=== PATIENT | female | born 1945 | race Caucasian/White ===

== ENCOUNTER 2019-04-09 02:43 | Inpatient (IN) ==
[2019-04-09] MEDS ORDERED: ONDANSETRON 4 MG/2 ML VIAL IV STA (02:49)
[2019-04-09] MEDS ORDERED: PANTOPRAZOLE INJ 80 MG in SODIUM CHLORIDE 0.9% 100 ML IV STA (02:49)
[2019-04-09] MEDS ORDERED: SODIUM CHLORIDE 0.9% 1,000 ML IV STA (02:49)
[2019-04-09 03:58] LABS: Albumin 3.7 G/DL (3.4-5.0); Basophils # 0.1 10*3/uL (0.0-0.2); Basophils % 0.6 % (0.0-0.8); Bilirubin,Total 0.6 MG/DL (0.2-1.0); Calcium 8.6 MG/DL (8.5-10.1); Eosinophils # 0.2 10*3/uL (0.0-0.87); Eosinophils % 1.9 % (0.00-10.9); Hematocrit 38.9 VOL% (35.7-47.0); Hemoglobin 12.3 GM/DL (12.0-16.0); Immature Granulocytes % 0.3 %; Immature Granulocytes Absolute 0.04 #; Lymphocytes # 1.6 10*3/uL (1.4-4.0); Lymphocytes % 13.5 % (21.3-54.2); Mean Corpuscular HGB Conc 31.6 GM/DL (32-36); Mean Corpuscular Volume 94.4 FL (87-102); Mean Platelet Volume 12.3 FL (9.6-12.0); Monocytes % 8.6 % (1.7-12.7); Neutrophils % 75.1 % (38.7-73.9); Osmolality,Calculated 304.3 MOS/KG (273-304); Platelet Count 204 T/CUMM (130-400); Red Blood Count 4.12 MC/CUMM (3.8-5.5); Red Cell Distribution Width 12.7 % (9.3-17.3); Total Protein 6.6 G/DL (6.4-8.3)
[2019-04-09 04:06] LABS: INR 1.1; PT Patient Result 11.4 SECS (9.6-12.2)
[2019-04-09] MEDS ORDERED: PANTOPRAZOLE INJ 200 MG in SODIUM CHLORIDE 0.9% 250 ML IV SCH (05:00)
[2019-04-09] MEDS ORDERED: ALBUTEROL 2.5 MG/3 ML NEB RESP TX PRN (06:39)
[2019-04-09] MEDS ORDERED: ACETAMINOPHEN 325 MG TABLET PO PRN (06:39)
[2019-04-09] MEDS ORDERED: ONDANSETRON 4 MG/2 ML VIAL IV PRN (06:39)
[2019-04-09] MEDS ORDERED: ALPRAZolam 0.5 MG TABLET PO PRN (06:39)
[2019-04-09] MEDS ORDERED: LEVOTHYROXINE 88 MCG TABLET PO SCH (07:00)
[2019-04-09] MEDS: SODIUM CHLORIDE 0.45% 1,000 ML IV SCH ×2 (07:21→16:11)
[2019-04-09 07:42] LABS: Hematocrit 35.9 VOL% (35.7-47.0); Hemoglobin 11.5 GM/DL (12.0-16.0)
[2019-04-09] MEDS: METOPROLOL TARTRATE 25 MG TABLET PO SCH ×2 (08:30→21:36)
[2019-04-09] MEDS: LISINOPRIL 2.5 MG TABLET PO SCH (08:30)
[2019-04-09] MEDS: ROSUVASTATIN 10 MG TABLET PO SCH (08:31)
[2019-04-09] MEDS: CETIRIZINE 10 MG TABLET PO SCH (08:31)
[2019-04-09] MEDS: PREGABALIN 75 MG CAPSULE PO SCH ×2 (08:31→21:36)
[2019-04-09] MEDS: LEVOTHYROXINE 100 MCG TABLET PO SCH (08:31)
[2019-04-09 13:32] LABS: Hematocrit 32.7 VOL% (35.7-47.0); Hemoglobin 10.5 GM/DL (12.0-16.0)
[2019-04-09 18:36] LABS: Hematocrit 31.3 VOL% (35.7-47.0)
[2019-04-10 00:52] LABS: Basophils % 0.5 % (0.0-0.8); Eosinophils # 0.3 10*3/uL (0.0-0.87); Eosinophils % 4.5 % (0.00-10.9); Hematocrit 30.1 VOL% (35.7-47.0); Hemoglobin 9.5 GM/DL (12.0-16.0); Immature Granulocytes % 0.2 %; Immature Granulocytes Absolute 0.01 #; Lymphocytes # 1.7 10*3/uL (1.4-4.0); Lymphocytes % 29.8 % (21.3-54.2); Mean Corpuscular HGB Conc 31.6 GM/DL (32-36); Mean Corpuscular Volume 93.5 FL (87-102); Mean Platelet Volume 11.5 FL (9.6-12.0); Monocytes % 10.8 % (1.7-12.7); Neutrophils % 54.2 % (38.7-73.9); Platelet Count 162 T/CUMM (130-400); Red Blood Count 3.22 MC/CUMM (3.8-5.5); Red Cell Distribution Width 12.7 % (9.3-17.3); White Blood Count 5.7 T/CUMM (4-12)
[2019-04-10 01:18] LABS: Calcium 8.5 MG/DL (8.5-10.1); Osmolality,Calculated 291.6 MOS/KG (273-304); Thyroid Stimulating Hormone 1.96 uIU/ml (0.358-3.74)
[2019-04-10] MEDS: SODIUM CHLORIDE 0.45% 1,000 ML IV SCH ×3 (02:50→23:46)
[2019-04-10] MEDS: LACTATED RINGERS 1,000 ML IV SCH (06:58)
[2019-04-10] MEDS: LEVOTHYROXINE 100 MCG TABLET PO SCH (09:01)
[2019-04-10] MEDS ORDERED: LIDOCAINE 2% 5 ML VIAL ONE (10:00)
[2019-04-10] MEDS ORDERED: ETOMIDATE 20 MG/10 ML VIAL IV ONE (10:00)
[2019-04-10] MEDS: PANTOPRAZOLE 40 MG VIAL IV SCH ×2 (13:47→21:44)
[2019-04-10] MEDS: CETIRIZINE 10 MG TABLET PO SCH (13:53)
[2019-04-10] MEDS: ROSUVASTATIN 10 MG TABLET PO SCH (13:53)
[2019-04-10] MEDS: METOPROLOL TARTRATE 25 MG TABLET PO SCH ×2 (13:53→21:44)
[2019-04-10] MEDS: LISINOPRIL 2.5 MG TABLET PO SCH (13:53)
[2019-04-10] MEDS: PREGABALIN 75 MG CAPSULE PO SCH ×2 (13:53→21:44)
[2019-04-11 05:16] LABS: Basophils % 0.7 % (0.0-0.8); Eosinophils # 0.3 10*3/uL (0.0-0.87); Eosinophils % 7.5 % (0.00-10.9); Hematocrit 27.6 VOL% (35.7-47.0); Immature Granulocytes % 0.2 %; Immature Granulocytes Absolute 0.01 #; Lymphocytes # 1.3 10*3/uL (1.4-4.0); Lymphocytes % 28.4 % (21.3-54.2); Mean Corpuscular HGB Conc 32.6 GM/DL (32-36); Mean Platelet Volume 11.9 FL (9.6-12.0); Monocytes % 14.5 % (1.7-12.7); Neutrophils % 48.7 % (38.7-73.9); Platelet Count 140 T/CUMM (130-400); Red Cell Distribution Width 12.5 % (9.3-17.3); White Blood Count 4.6 T/CUMM (4-12)
[2019-04-11 05:43] LABS: Calcium 8.6 MG/DL (8.5-10.1); Osmolality,Calculated 284.7 MOS/KG (273-304)
[2019-04-11] MEDS: LEVOTHYROXINE 100 MCG TABLET PO SCH (06:48)
[2019-04-11] MEDS: LACTATED RINGERS 1,000 ML IV SCH (07:47)
[2019-04-11] MEDS: ROSUVASTATIN 10 MG TABLET PO SCH (09:20)
[2019-04-11] MEDS: PANTOPRAZOLE 40 MG VIAL IV SCH (09:20)
[2019-04-11] MEDS: PREGABALIN 75 MG CAPSULE PO SCH (09:20)
[2019-04-11] MEDS: LISINOPRIL 2.5 MG TABLET PO SCH (09:20)
[2019-04-11] MEDS: CETIRIZINE 10 MG TABLET PO SCH (09:20)
[2019-04-11] MEDS: METOPROLOL TARTRATE 25 MG TABLET PO SCH (09:21)
[2019-04-11] MEDS: SODIUM CHLORIDE 0.45% 1,000 ML IV SCH (09:50)
[2019-04-11 12:02] VITALS: BP 115/53
== END 2019-04-11 13:12 | disposition home or self-care (01) | DRG 369 ==
LOC: EDBD → EDUNIT# → N.ED 02:43 → N.EDINP 05:53 → N.5E 06:01
PROVIDERS: ADMIT Internal Medicine; ATTEND Internal Medicine